=== PATIENT | female | born 1950 | race Caucasian/White ===

== ENCOUNTER → 2016-07-22 | Outpatient (CLI) | payer OTHER ==
[~2016-07-22] VITALS: Ht 152.4 cm; Wt 73.9 kg
[~2016-07-22] MED LIST: AMBIEN 10 MG TA10 MG PO; AMBIEN5 MG PO; ASTELIN30 ML NS; AVAPRO 150 MG150 M1 PO; BENICAR20 MG PO; CELEBREX 200 M200 MG PO; CHLORTHALIDONE25 MG PO; CO Q-10100 MG PO; CYMBALTA30 MG PO; GRAM-O-LECI1000 MG PO; HYDROCODON-ACE1 EAC7 PO; HYDROCODON-ACE1 EACH PO; KLOR-CON 1010 MEQ PO; MIRALAX255 GM PO; MUCINEX D TABL1 EAC1 PO; MULTIVITAMINS1 EAC7 PO; NASONEX17 GM NS; NEXIUM20 M1 PO; PRAVACHOL20 MG PO; PREMARIN0.625 MG PO; PREMARIN1.25 MG PO; VITAMIN E400 UNIT PO; VITCB500GO PO; ZOCOR40 MG PO
--- NOTE | ~2016-07-22 | HPC ---
[facility] [address] [place] [address] PAIN MANAGEMENT CONSULTATION Name: TIANNA CORDON Room #: REG HATTIE Shanda#: [id number] Admission: 07/22/16 Attend Phys: Faraz Robin MD Discharge: Date of : 50 Report #: [id number] THIS REPORT FOR: //name// CC: Satinder Robin DATE OF SERVICE: 07/22/2016 Followup visit for chronic low back pain. The patient returns to pain clinic today in followup. She complains of radicular pain today that she did not have on 06/17. Pain radiates from her back to her hip anteriorly into the thigh and groin. Previously, she was complaining mostly of just midline pain. The pain today is 5/10. It is worse with standing and walking. It is all right sided. It has been alleviated by medication. She was helped quite a bit by the Cymbalta, which was ordered at her last visit. She remains on Cymbalta 30 mg once daily. It has been renewed. She has [place] but uses it infrequently. No additional medications have been recommended. She is referred on for physical therapy and exercise was again stressed as an important activity for her. We discussed potential options for future treatment including an epidural steroid injection, possibly for the radicular pain into right leg. Reviewed her MRI findings which dated back in 2005. We have nothing recent. She does have a lumbar spondylosis and scoliosis ____ degenerative disk disease. Spinal stenosis was noted as long as it goes 10 years ago, so I am sure that this has progressed to some degree. IMPRESSION: Spinal stenosis with low back pain, now with radiculopathy, marked scoliosis and spondylosis. PLAN: Follow up as needed from injection and ongoing medication management. <ELECTRONICALLY SIGNED> By: Faraz Robin MD 08/15/16 1130 [id number] Faraz Robin MD /nt
[2016-07-22 12:52] VITALS: BP 110/73
== END | disposition home or self-care (01) ==
LOC: PAIN 07-09 08:36
DX: M48.06 Spinal stenosis, lumbar region (principal); M41.86 Other forms of scoliosis, lumbar region; M47.896 Other spondylosis, lumbar region; G89.29 Other chronic pain

== ENCOUNTER → 2016-12-03 | Outpatient (CLI) | payer OTHER ==
[~2016-12-03] VITALS: Ht 157.5 cm; Wt 76.6 kg
--- NOTE | ~2016-12-03 | HPC ---
[facility] [place] [address] PAIN MANAGEMENT CONSULTATION Name: TIANNA CORDON Room #: REG HATTIE Solomon.#: [id number] Admission: 12/03/16 Attend Phys: Faraz Robin MD Discharge: Date of : 50 Report #: [id number] THIS REPORT FOR: //name// CC: Satinder Robin DATE OF SERVICE: 12/03/2016 Followup visit for chronic low back pain with radiculopathy, right leg. HISTORY OF PRESENT ILLNESS: The patient returns to pain clinic today to discuss transition of her care to Dr. Goyal. I see her for medication management. She is using very minimal amounts of hydrocodone. Her last visit in the clinic was on 07/22/2016. I had previously placed her on Cymbalta in 06/2016 due to worsening depression and increasing pain. She had a lot going on at that time. I additionally referred her to physical therapy. She does not want to use nor does she frequently use hydrocodone. CURRENT MEDICINES: Cymbalta 30 mg daily, hydrocodone 1 tablet rarely utilized, MiraLax p.r.n., chlorthalidone 25 mg daily. PHYSICAL EXAMINATION: Pleasant, no signs of depression today. Blood pressure 114/65, heart rate 102, respirations 30.9. She is able to move easily from sitting to standing position. Has some pain in her low back radiating into right leg with standing. Straight leg raising is positive as well. IMPRESSION: Chronic low back pain with mild radiculopathy, history of scoliosis and spondylosis with degenerative disk disease. Spinal cord stimulator placed in 2006. It has been long since been idle. PLAN: 1. Transition medication to Dr. Goyal. He can write for Cymbalta and a small amount of hydrocodone that she is receiving. She takes less than 1 tablet per day on average. 2. The patient is scheduled to see Dr. Eriberto Garcia for removal of spinal cord stimulator. 3. Return to the pain clinic if necessary for any further injection therapies. By: [id number] Faraz Robin MD /nt
[2016-12-03 13:05] VITALS: BP 114/65
== END | disposition home or self-care (01) ==
LOC: PAIN 07:11
DX: M54.10 Radiculopathy, site unspecified (principal); M41.9 Scoliosis, unspecified; F32.9 Major depressive disorder, single episode, unspecified; M47.899 Other spondylosis, site unspecified; M19.90 Unspecified osteoarthritis, unspecified site

== ENCOUNTER → 2017-03-18 | Outpatient (CLI) | payer OTHER ==
[~2017-03-18] VITALS: Ht 157.5 cm; Wt 74.7 kg
[~2017-03-18] MED LIST changes: +CYMBALTA60 MG PO; +OMEPRAZOLE 20 M20 M1 PO; +PROAIR HFA8.5 GM INH
--- NOTE | ~2017-03-18 | HPC ---
[facility] [address] [place] [address] PAIN MANAGEMENT CONSULTATION Name: TIANNA ANDREWS Room #: REG HATTIE Shanda#: [id number] Admission: 03/18/17 Attend Phys: Faraz Robin MD Discharge: Date of : 50 Report #: [id number] THIS REPORT FOR: //name// CC: Satinder Robin DATE OF SERVICE: 03/18/2017 Followup visit to discuss spinal cord stimulation. Ms. Andrews was in the clinic today with her for a 25-minute consultation. The consultation centered around the possibility of reviving her spinal cord stimulator. She has a [employer] system that was placed in 2010, a single OCTAD lead, percutaneous. We had previously talked about taking it out. They wanted to discuss spinal cord stimulation in some detail, about the possibility of re-utilizing her lead and also the possibility of perhaps using another system altogether. I discussed the available systems. We reviewed her previous x-rays that showed where her lead placement was and we talked about the new pulse generators, which provide high frequency stimulation. At the conclusion of our consultation today, we elected to abandon spinal cord stimulation. I do not think that the current lead can be reconfigured to be effective with a new internal pulse generator of any company. The lead has shifted slightly lateral due to her scoliosis and I believe that if we were going to try and reestablish spinal cord stimulation, we would need to replace the entire system altogether. This would require placing a new lead in an area of scar tissue, which is often times challenging and fraught with additional risks. Plan is for her to continue with current management techniques and I will see her back in the pain clinic as needed. By: [id number] Faraz Robin MD /nt
[2017-03-18 13:15] VITALS: BP 118/65
== END | disposition home or self-care (01) ==
LOC: PAIN 06:17
DX: M54.5 Low back pain (principal); G89.29 Other chronic pain

== ENCOUNTER → 2017-06-21 | Outpatient (CLI) | payer OTHER ==
[~2017-06-21] VITALS: Ht 157.5 cm; Wt 76.1 kg
[~2017-06-21] MED LIST changes: +VITAMIN D3400 UNIT PO
--- NOTE | ~2017-06-21 | HPC ---
[facility] [address] [place] [address] PAIN MANAGEMENT CONSULTATION Name: TIANNA CORDON Room #: REG HATTIE Shanda#: [id number] Admission: 06/21/17 Attend Phys: Faraz Robin MD Discharge: Date of : 50 Report #: [id number] THIS REPORT FOR: //name// CC: Satinder Robin Followup visit for management of low back pain with radiculopathy. Treats returns to pain clinic today. She has had her spinal cord stimulator removed. She has done physical therapy over the years with Robb Hernandez and is having increasing radiculopathy related to her severe kyphoscoliosis of the lumbar spine. We have discussed in the past epidural injection and how this might be able to provide some benefit for her. Her pain is in her right back and radiates in a radicular fashion through the right anterior lateral thigh to the knee following an L4 distribution. Pain is 6, is described as numbness, tingling and pounding, worse with walking and standing, is relieved by lying down. MEDICATIONS: Cholecalciferol, omeprazole, albuterol, duloxetine, hydrocodone 5/325 q. 8 hours, MiraLax, chlorthalidone, potassium, zolpidem, pravastatin, ____, vitamin E, ascorbic acid, Celebrex 200 mg daily. ALLERGIES: None. PQRS CRITERIA: She is not a fall risk. She does not smoke. She does have some osteoarthritis complaints, particularly through her low back where she has spondylitic arthritis. She does not have too much in her knees or her hips. She is on an opioid and is on an oral agreement as well as written one. She safeguards all medication. She understands the CDC guidelines, the opioid crisis in her ____ and carefully managing her medication. PHYSICAL EXAMINATION: She is a pleasant, alert and oriented female, in no signs of overmedication, depression or anxiety. She moves from sitting to standing position, walks with some mild antalgic feature. She has pain across her low back and on the right leg, she has a radicular symptom with straight leg raising that follows the L4-L5 distribution. IMPRESSION: 1. Chronic intractable pain with severe kyphoscoliosis. She failed spinal cord stimulation which has been removed. 2. Lumbar radiculopathy secondary to above. 3. Opioid dependence. Medications were provided for her by Dr Satinder Goyal. PROCEDURE: Lumbar epidural steroid injection under fluoroscopic guidance. After informed consent, she was taken to fluoroscopic suite, placed prone, skin [address] [address] PAIN MANAGEMENT CONSULTATION Name: DENTON CORDONSA Easley Room #: REG HATTIE Land#: [id number] Admission: 06/21/17 Attend Phys: Faraz Robin MD Discharge: Date of : 50 Report #: [id number] prepped with ChloraPrep. Skin was anesthetized over the L3-L4 interspace at the apex of her curve. A 20-gauge Tuohy epidural needle was advanced in first attempt in the epidural space with loss of resistance. No blood or CSF was aspirated. Good spread of dye was noted throughout the epidural space and then I injected a total of 4 mL of 1% lidocaine mixed with 80 mg of triamcinolone. She tolerated the procedure well. Pain score was 0 at discharge and a followup visit planned as needed. By: [id number] Faraz Robin MD /nt
[2017-06-21 10:45] VITALS: BP 116/78
== END | disposition home or self-care (01) ==
LOC: PAIN 07:07
DX: M54.16 Radiculopathy, lumbar region (principal); M41.9 Scoliosis, unspecified; G89.29 Other chronic pain; F11.20 Opioid dependence, uncomplicated; Z79.899 Other long term (current) drug therapy